=== PATIENT | female | born 1960 | race Caucasian/White ===

== ENCOUNTER 2019-01-20 07:37 | Emergency (ER) | payer SELFPAY ==
--- NOTE | 2019-01-20 07:41 | ER Report ---
History and Physical Time Seen By MD: 07:38 HPI/ROS Diffuse body aches, nausea, decreased PO, and feeling dizzy for 2-3 days. Also with multiple episodes of vomiting. No abdominal pain or chest pain. No SOB. No fever. No dysuria/hematuria. No trauma. Feels "achy" overall. No sick contacts. No ALBARADO or visions changes. No focal neuro deficits. Remainder of the 14 system rev: Yes Allergies: Coded Allergies: iodine (Verified Allergy, Mild, RASH, 01/20/19) Home Meds Active Scripts Meclizine Hcl (MECLIZINE HCL) 25 Mg Tablet, 25 MG PO BID for 5 Days, #10 Prov:LEONARDO WHITAKER MD 01/20/19 Ondansetron Hcl (ZOFRAN) 4 Mg Tablet, 4 MG PO Q6H for 4 Days, #12 TAB Prov:LEONARDO WHITAKER MD 01/20/19 Reported Medications Zolpidem Tartrate (AMBIEN) 10 Mg Tablet, 1 TAB PO QHS, TAB 01/20/19 Escitalopram Oxalate (LEXAPRO) 20 Mg Tablet, 20 MG PO QDAY, TAB 01/20/19 Tramadol Hcl (TRAMADOL HCL) 50 Mg Tablet, 50-100 MG PO Q4-6H PRN for PAIN, TAB 01/20/19 Reviewed Nurses Notes: Yes Constitutional Vital Sign - Last 24 Hours 01/20/19 01/20/19 01/20/19 01/20/19 07:42 07:44 07:56 08:00 Temp 98.3 Pulse 84 Resp 18 B/P (MAP) 150/116 (127) 150/116 (127) 135/113 (120) Pulse Ox 90 O2 Delivery Room Air 01/20/19 01/20/19 01/20/19 01/20/19 08:07 08:15 08:30 08:37 Pulse 78 78 Resp 15 14 B/P (MAP) 146/94 (111) 136/98 (111) Pulse Ox 89 89 01/20/19 01/20/19 01/20/19 01/20/19 08:45 08:50 09:00 09:15 Pulse 78 Resp 19 B/P (MAP) 132/86 (101) 129/89 (102) 125/85 (98) Pulse Ox 90 01/20/19 01/20/19 01/20/198/19 09:20 09:30 09:35 09:45 Pulse 74 75 Resp 14 21 B/P (MAP) 146/101 (116) 134/96 (109) Pulse Ox 90 90 01/20/19 01/20/19 01/20/19 01/20/19 10:00 10:15 10:30 10:35 Pulse 85 Resp 30 B/P (MAP) 131/92 (105) 129/91 (104) 125/89 (101) Pulse Ox 91 01/20/19 10:45 B/P (MAP) 120/91 (101) Physical Exam General Appearance: The patient is alert, has no immediate need for airway protection and no current signs of toxicity. Eyes: Pupils equal and round no injection. No nystagmus Respiratory: Chest is non tender, lungs are clear to auscultation. Cardiac: regular rate and rhythm Gastrointestinal: Abdomen is soft and non tender, no masses, bowel sounds normal. Neck: Neck is supple and non tender. Extremities have full range of motion and are non tender. Skin: No rashes or lesions. Neuro: Normal gait, strength/sensation in tact, CN II-XII in tact. DIFFERENTIAL DIAGNOSIS: After history and physical exam differential diagnosis was considered for dizziness including but not limited to peripheral and central causes of vertigo, orthostatic causes including dehydration, and blood loss. Medical Decision Making Data Points Result Diagram: 01/20/19 0800 01/20/19 0800 Laboratory Hematology Test 01/20/19 08:00 01/20/19 08:05 Red Blood Count 4.98 M/uL (4.17-5.56) Mean Corpuscular Volume 85.6 fL (80.0-96.0) Mean Corpuscular Hemoglobin 29.1 pg (26.0-33.0) Mean Corpuscular Hemoglobin Concent 34.0 g/dL (32.0-36.0) Red Cell Distribution Width 16.2 % (11.5-14.5) Mean Platelet Volume 7.5 fL (7.2-11.1) Neutrophils (%) (Auto) 61.2 % (39.4-72.5) Lymphocytes (%) (Auto) 28.1 % (17.6-49.6) Monocytes (%) (Auto) 4.4 % (4.1-12.4) Eosinophils (%) (Auto) 5.2 % (0.4-6.7) Basophils (%) (Auto) 1.1 % (0.3-1.4) Nucleated RBC Relative Count (auto) 0.0 /100WBC Neutrophils # (Auto) 4.2 K/uL (2.0-7.4) Lymphocytes # (Auto) 1.9 K/uL (1.3-3.6) Monocytes # (Auto) 0.3 K/uL (0.3-1.0) Eosinophils # (Auto) 0.4 K/uL (0.0-0.5) Basophils # (Auto) 0.1 K/uL (0.0-0.1) Nucleated RBC Absolute Count (auto) 0.00 K/uL Sodium Level 143 mmol/L (137-145) Potassium Level 3.5 mmol/L (3.5-5.0) Chloride Level 104 mmol/L (98-107) Carbon Dioxide Level 25 mmol/L (22-31) Blood Urea Nitrogen 13 mg/dl (7-18) Creatinine 0.70 mg/dl (0.52-1.04) Glomerular Filtration Rate Calc > 60.0 Random Glucose 117 mg/dl (75-110) Calcium Level 9.2 mg/dl (8.4-10.2) Total Bilirubin 0.6 mg/dl (0.2-1.3) Aspartate Amino Transf (AST/SGOT) 21 U/L (0-35) Alanine Aminotransferase (ALT/SGPT) 24 U/L (0-56) Alkaline Phosphatase 84 U/L (0-126) Troponin I < 0.012 ng/ml Total Protein 7.3 g/dl (6.3-8.2) Albumin 4.2 g/dl (3.5-5.0) Urine Color Yellow Urine Clarity Slightly-cloudy Urine pH 5.0 pH (4.8-9.5) Urine Specific [place] 1.020 Urine Protein Negative mg/dL (NEGATIVE) Urine Glucose (UA) Negative mg/dL (NEGATIVE) Urine Ketones 20 mg/dL (NEGATIVE) Urine Blood Negative (NEGATIVE) Urine Nitrite Negative (NEGATIVE) Urine Bilirubin Negative (NEGATIVE) Urine Urobilinogen Negative mg/dL (0.2-1.9) Urine Leukocyte Esterase Negative (NEGATIVE) Urine RBC 1 /HPF (0-2/HPF) Urine WBC 1 /HPF (0-5/HPF) Urine Squamous Epithelial Cells Many /LPF (</=FEW) Urine Bacteria Negative /HPF (NONE-FEW) Urine Mucus Few /HPF (NONE-FEW) Chemistry Test 01/20/19 08:00 01/20/19 08:05 White Blood Count 6.8 k/uL (4.5-11.0) Red Blood Count 4.98 M/uL (4.17-5.56) Hemoglobin 14.5 g/dL (12.0-16.0) Hematocrit 42.6 % (34.0-47.0) Mean Corpuscular Volume 85.6 fL (80.0-96.0) Mean Corpuscular Hemoglobin 29.1 pg (26.0-33.0) Mean Corpuscular Hemoglobin Concent 34.0 g/dL (32.0-36.0) Red Cell Distribution Width 16.2 % (11.5-14.5) Platelet Count 300 K/uL (150-450) Mean Platelet Volume 7.5 fL (7.2-11.1) Neutrophils (%) (Auto) 61.2 % (39.4-72.5) Lymphocytes (%) (Auto) 28.1 % (17.6-49.6) Monocytes (%) (Auto) 4.4 % (4.1-12.4) Eosinophils (%) (Auto) 5.2 % (0.4-6.7) Basophils (%) (Auto) 1.1 % (0.3-1.4) Nucleated RBC Relative Count (auto) 0.0 /100WBC Neutrophils # (Auto) 4.2 K/uL (2.0-7.4) Lymphocytes # (Auto) 1.9 K/uL (1.3-3.6) Monocytes # (Auto) 0.3 K/uL (0.3-1.0) Eosinophils # (Auto) 0.4 K/uL (0.0-0.5) Basophils # (Auto) 0.1 K/uL (0.0-0.1) Nucleated RBC Absolute Count (auto) 0.00 K/uL Glomerular Filtration Rate Calc > 60.0 Calcium Level 9.2 mg/dl (8.4-10.2) Total Bilirubin 0.6 mg/dl (0.2-1.3) Aspartate Amino Transf (AST/SGOT) 21 U/L (0-35) Alanine Aminotransferase (ALT/SGPT) 24 U/L (0-56) Alkaline Phosphatase 84 U/L (0-126) Troponin I < 0.012 ng/ml Total Protein 7.3 g/dl (6.3-8.2) Albumin 4.2 g/dl (3.5-5.0) Urine Color Yellow Urine Clarity Slightly-cloudy Urine pH 5.0 pH (4.8-9.5) Urine Specific [place] 1.020 Urine Protein Negative mg/dL (NEGATIVE) Urine Glucose (UA) Negative mg/dL (NEGATIVE) Urine Ketones 20 mg/dL (NEGATIVE) Urine Blood Negative (NEGATIVE) Urine Nitrite Negative (NEGATIVE) Urine Bilirubin Negative (NEGATIVE) Urine Urobilinogen Negative mg/dL (0.2-1.9) Urine Leukocyte Esterase Negative (NEGATIVE) Urine RBC 1 /HPF (0-2/HPF) Urine WBC 1 /HPF (0-5/HPF) Urine Squamous Epithelial Cells Many /LPF (</=FEW) Urine Bacteria Negative /HPF (NONE-FEW) Urine Mucus Few /HPF (NONE-FEW) Urinalysis Test 01/20/19 08:05 Urine Color Yellow Urine Clarity Slightly-cloudy Urine pH 5.0 pH (4.8-9.5) Urine Specific [place] 1.020 Urine Protein Negative mg/dL (NEGATIVE) Urine Glucose (UA) Negative mg/dL (NEGATIVE) Urine Ketones 20 mg/dL (NEGATIVE) Urine Blood Negative (NEGATIVE) Urine Nitrite Negative (NEGATIVE) Urine Bilirubin Negative (NEGATIVE) Urine Urobilinogen Negative mg/dL (0.2-1.9) Urine Leukocyte Esterase Negative (NEGATIVE) Urine RBC 1 /HPF (0-2/HPF) Urine WBC 1 /HPF (0-5/HPF) Urine Squamous Epithelial Cells Many /LPF (</=FEW) Urine Bacteria Negative /HPF (NONE-FEW) Urine Mucus Few /HPF (NONE-FEW) ED Course/Re-evaluation ED Course Not consistent with ACS. No abdominal pain requiring imaging. No focal neuro deficits to suggest CVA. Not consistent with BPPV. This is more feeling lightheaded then vertigo. No evidence of infection. I think her symptoms are viral and secondary to decreased by mouth and vomiting. She was given IV fluids and meclizine with improvement. She will follow-up with her primary care physician. Decision to Disposition Date: Jan 20, 2019 Decision to Disposition Time: 10:43 Depart Departure Latest Vital Signs Vital Signs Date Time Temp Pulse Resp B/P (MAP) Pulse Ox O2 Delivery O2 Flow Rate FiO2 01/20/19 10:45 120/91 (101) 01/20/19 10:35 85 30 91 01/20/19 07:42 98.3 Room Air Impression: Primary Impression: Flu-like symptoms Condition: Improved Disposition: HOME OR SELF-CARE New Scripts Meclizine Hcl (MECLIZINE HCL) 25 Mg Tablet 25 MG PO BID for 5 Days, #10 Prov: LEONARDO WHITAKER MD 01/20/19 Ondansetron Hcl (ZOFRAN) 4 Mg Tablet 4 MG PO Q6H for 4 Days, #12 TAB Prov: LEONARDO WHITAKER MD 01/20/19 Patient Instructions: Dizziness (ED) LEONARDO WHITAKER MD Jan 20, 2019 07:41
[2019-01-20] MEDS ORDERED: TRAM-420 PO (07:53)
[2019-01-20] MEDS ORDERED: ZOLP-350 PO (07:53)
[2019-01-20] MEDS ORDERED: ESCI20TA38 PO (07:53)
[2019-01-20 08:08] LABS: PLATELET COUNT, AUTOMATED 300 K/uL (150-450)
[2019-01-20] MEDS ORDERED: KETOROLAC 30 MG/ML VIAL IVP ONE (08:40)
[2019-01-20] MEDS ORDERED: MECLIZINE HCL 25 MG TAB PO ONE (10:20)
[2019-01-20 10:45] VITALS: BP 120/91
[2019-01-20] MEDS ORDERED: MECL25TA9 PO (10:48)
[2019-01-20] MEDS ORDERED: ONDA4TAB97 PO (10:48)
--- NOTE | 2019-01-20 15:21 | EKG ---
FACILITY: [facility] PATIENT NAME: ANTHONY NEAL : [id number] MR: [id number] V: [id number] EXAM DATE: ORDERING PHYSICIAN: LEONARDO WHITAKER TECHNOLOGIST: Test Reason : Blood Pressure : / mmHG Vent. Rate : 074 BPM Atrial Rate : 074 BPM P-R Int : 188 ms QRS Dur : 094 ms QT Int : 406 ms P-R-T Axes : 053 003 029 degrees QTc Int : 450 ms Sinus rhythm Borderline left axis Decreased R wave progression anteriorly Nonspecific T wave findings anteriorly No previous ECGs available Confirmed by HUNTER FLOWER [id number] on 01/20/2019 7:36:45 PM Referred By: Confirmed By:HUNTER FLOWER
== END 2019-01-20 11:07 | disposition home or self-care (01) ==
LOC: ER 07:51
DX: R42 Dizziness and giddiness (principal); R11.0 Nausea
CPT/HCPCS: 81001; 84484; 85025; 93005; 96374; 99283; J1885; J8597; 82040; 82247; 82310; 82374; 82435; 82565; 82947; 84075; 84132; 84155; 84295; 84450; 84460; 84520